=== PATIENT | female | born 1950 | race Caucasian/White ===

== ENCOUNTER 2016-06-17 12:26 | Emergency (ER) | payer OTHER ==
[~2016-06-17] VITALS: Ht 160 cm; Wt 66.2 kg
[~2016-06-17 12:26] MED LIST: ADVI200C9 PO; BUPR-197 PO; HYDR-3533 PO; OMEG5CAP PO; OYST500T77 PO
[2016-06-17 12:33] VITALS: BP 150/84; PULSE 82; RESP 16; TEMP 98.4; O2SAT 98
[2016-06-17] MEDS ORDERED: DOXY100C PO (14:44)
--- NOTE | 2016-06-17 14:46 | PD ---
HPI Chief Complaint: Facial Pain or Swelling Time Seen by Provider: 14:25 Travel History International Travel<30 days: No Contact w/Intl Traveler<30days: No Traveled to known affect area: No History of Present Illness HPI 65-year-old female presents to the emergency room for evaluation of left-sided facial swelling since yesterday. Patient states about 3 days ago, she accidentally scratched her face with her fingernail and noticed some clear drainage on the nail. She had no issues at the area until yesterday when she developed left-sided sinus swelling. She had no pain, purulent drainage, or increased warmth to the area. She applied heat to the area but states the swelling seemed to worsen after that. States overnight swelling worsened severely and caused her eye to almost swollen shut in the morning but since being awake, swelling has gone down on its own. She denies fever, chills, nausea, and vomiting. Denies nasal congestion or recent illness. PFSH Past Medical History Medical History: Denies Significant Hx Blood Disorders: No Depression: Yes (SITUATIONAL DEPRESSION) Cancer: No Cardiovascular Problems: No High Cholesterol: Yes Diabetes: No Diminished Hearing: No Endocrine: No Glaucoma: No Hepatitis: No Hiatal Hernia: No Hypertension: No Immune Disorder: No Medical other: Yes (NECK PROBLEMS) Musculoskeletal: Yes (CHRONIC NECK PAIN, TENDONITIS IN ANKLE) Neurologic: No Psychiatric: Yes Reproductive: Yes (SEE SURGERIES ABOVE) Respiratory: No Thyroid Disease: No Tetanus Vaccination: Unknown Influenza Vaccination: Yes ?: Not Past Surgical History Genitourinary Surgery: Yes (URETHAL DIVITICULI REPAIR, FISTULA) Gynecologic Surgery: Yes (HYSTERECTOMY) Hysterectomy: Yes Tonsillectomy: Yes Other Surgery: Yes (TONSILLECTOMY, HYSTERECTOMY, URETHRAL DIVERTICULI) Social History Alcohol Use: No Tobacco Use: Yes (1/2 PPD) Substance Use: No Allergies-Medications (Allergen,Severity, Reaction): Coded Allergies: Penicillin (Verified Allergy, Severe, Hives, 06/17/16) SOB Reported Meds & Prescriptions Reported Meds & Active Scripts Active Doxycycline Hyclate 100 Mg Cap 100 Mg PO BID Review of Systems Except as stated in HPI: all other systems reviewed are Neg Physical Exam Narrative GENERAL: Well-nourished, well-developed female in no acute distress. Afebrile. Ambulatory. SKIN: Warm and dry. There is an indurated area in the left maxillary sinus at the nasal fold which measures about 1 cm in diameter. There is no fluctuance, pointing, or drainage. There is a zone of inflammation around it measuring about 2 cm but no lymphangitis. There is a very superficial abrasion overlying the area of induration. HEAD: Normocephalic. EYES: No scleral icterus. No injection or drainage. NECK: Supple, trachea midline. No JVD or lymphadenopathy. Data Data Last Documented VS Vital Signs Date Time Temp Pulse Resp B/P Pulse Ox O2 Delivery O2 Flow Rate FiO2 06/17/16 12:33 98.4 82 16 150/84 98 MDM Medical Decision Making Medical Screen Exam Complete: Yes Emergency Medical Condition: Yes Medical Record Reviewed: Yes Differential Diagnosis Abscess versus folliculitis versus sinusitis Narrative Course 65-year-old female presents to the emergency room for evaluation of induration over the left sinus at the nasal fold. She associated it with scratching herself with her fingernail 3 days ago. Yesterday she developed the swelling/ induration. Denies any purulent drainage, erythema, pain, or increased warmth. Patient denies any sinus symptoms. No pain with leaning forward. Area is nontender to palpation. There is no noticeable increased warmth. There is a one. Induration with some mild surrounding erythema. Given previous break in skin, this is likely abscess. Because abscess location is adjacent to sinuses, she'll be treated for sinus and/or skin infection with doxycycline. There is no fluctuance and abscess is on the face so conservative treatment with antibiotics will be attempted first. Patient was to follow up with her primary care physician as she may need incision and drainage in the future. Told to return for worsening symptoms. She understands and agrees to plan. Diagnosis Primary Impression: Cutaneous abscess of face Referrals: Primary Care Physician Patient Instructions: Abscess (ED), General Instructions Additional Instructions: Rest and drink plenty of fluids. Take doxycycline as directed, until gone. Take ibuprofen with food as directed, as needed for pain. Apply heat to the affected area for 20 minutes at a time. Follow-up with a primary care physician if it does not improve with antibiotics as it may need lanced. Return to the emergency room for worsening symptoms. Med/Other Pt SpecificInfo: Prescription(s) given Scripts Doxycycline Hyclate 100 Mg [id number] Mg PO BID #20 CAP Ref 0 Prov:MacMahon,Castro MD 06/17/16 Disposition: 01 DISCHARGE HOME Condition: Stable Jenniffer Davenport Jun 17, 2016 14:46
== END 2016-06-17 15:16 | disposition home or self-care (01) ==
LOC: PHEFT 12:26
DX: L02.01 Cutaneous abscess of face (principal); E78.00 Pure hypercholesterolemia, unspecified; F17.210 Nicotine dependence, cigarettes, uncomplicated
CPT/HCPCS: 99283

== ENCOUNTER 2017-02-23 10:47 | Inpatient (IN) | payer OTHER ==
[2017-02-23] VITALS (8 sets, daily range): BP systolic 132–159; BP diastolic 69–81; PULSE 72–86; RESP 16–20; TEMP 97.6–98.4; O2SAT 95–99
[~2017-02-23] VITALS: Ht 160 cm; Wt 69.0 kg
[~2017-02-23 10:47] MED LIST changes: -ADVI200C9 PO; -BUPR-197 PO; +DOXY100C PO; -HYDR-3533 PO; -OMEG5CAP PO; -OYST500T77 PO
[2017-02-23] MEDS ORDERED: SODIUM CHLORIDE 0.9% FLUSH 10 ML FLUSH IVF PRN (11:15)
[2017-02-23] MEDS ORDERED: ONDANSETRON HCL 4 MG/2 ML VIAL IVP ONE (11:15)
--- NOTE | 2017-02-23 11:29 | PD ---
HPI Chief Complaint: Neuro Symptoms/ Deficits Time Seen by Provider: 11:12 Travel History International Travel<30 days: No Contact w/Intl Traveler<30days: No Traveled to known affect area: No History of Present Illness HPI The patient is 66 years old and arrives by EMS due to numbness tingling on the right side associated with weakness on the right side last night which lasted for about 20 minutes. It resolved spontaneously. The patient with the bed. This morning she noticed a depression of the right nasolabial fold and some drooling which lasted for 10-15 minutes. It resolved spontaneously en route to the ER and upon arrival she is asymptomatic. Location neurologic. Onset sudden. No similar prior episode. No history of arrhythmia. EMS reports normal vital signs are normal blood glucose. PFSH Past Medical History Blood Disorders: No Depression: Yes (SITUATIONAL DEPRESSION) Cancer: No Cardiovascular Problems: No High Cholesterol: Yes Diabetes: No Diminished Hearing: No Endocrine: No Glaucoma: No Hepatitis: No Hiatal Hernia: No Hypertension: No Immune Disorder: No Medical other: Yes (NECK PROBLEMS) Musculoskeletal: Yes (CHRONIC NECK PAIN, TENDONITIS IN ANKLE) Neurologic: No Psychiatric: Yes Reproductive: Yes (SEE SURGERIES ABOVE) Respiratory: No Thyroid Disease: No ?: Not Past Surgical History Genitourinary Surgery: Yes (URETHAL DIVITICULI REPAIR, FISTULA) Gynecologic Surgery: Yes (HYSTERECTOMY) Hysterectomy: Yes Tonsillectomy: Yes Other Surgery: Yes (TONSILLECTOMY, HYSTERECTOMY, URETHRAL DIVERTICULI) Social History Alcohol Use: No Tobacco Use: Yes (ppd) Substance Use: No Allergies-Medications (Allergen,Severity, Reaction): Coded Allergies: penicillin G (Unverified Allergy, Severe, Hives, 02/23/17) SOB Reported Meds & Prescriptions Reported Meds & Active Scripts Active No Active Prescriptions or Reported Medications Review of Systems Except as stated in HPI: all other systems reviewed are Neg Physical Exam Narrative GENERAL: 66-year-old female pleasant well-nourished well-developed speaking full sentences SKIN: Warm and dry. HEAD: Atraumatic. Normocephalic. EYES: Pupils equal and round. No scleral icterus. No injection or drainage. ENT: No nasal bleeding or discharge. Mucous membranes pink and moist. NECK: Trachea midline. No JVD. CARDIOVASCULAR: Regular rate and rhythm. RESPIRATORY: No accessory muscle use. Clear to auscultation. Breath sounds equal bilaterally. GASTROINTESTINAL: Abdomen soft, non-tender, nondistended. Hepatic and splenic margins not palpable. MUSCULOSKELETAL: Extremities without clubbing, cyanosis, or edema. No obvious deformities. NEUROLOGICAL: Awake and alert. No obvious cranial nerve deficits. Motor grossly within normal limits. Five out of 5 muscle strength in the arms and legs. Normal speech. PSYCHIATRIC: Appropriate mood and affect; insight and judgment normal. Data Data Last Documented VS Vital Signs Date Time Temp Pulse Resp B/P (MAP) Pulse Ox O2 Delivery O2 Flow Rate FiO2 02/23/17 12:53 75 20 132/69 (90) 95 Room Air 02/23/17 10:50 98.4 Vital signs reviewed Orders Orders Prothrombin Time / Inr (Pt) (02/23/17 11:12) Act Partial Throm Time (Ptt) (02/23/17 11:12) Complete Blood Count With Diff (02/23/17 11:12) Basic Metabolic Panel (Bmp) (02/23/17 11:12) Ct Brain W/O Iv Contrast(Rout) (02/23/17 11:12) Ecg Monitoring (02/23/17 11:12) Iv Access Insert/Monitor (02/23/17 11:12) Oximetry (02/23/17 11:12) Blood Glucose (02/23/17 11:12) Ondansetron Inj (Zofran Inj) (02/23/17 11:15) Sodium Chloride 0.9% Flush (Ns Flush) (02/23/17 11:15) Mri Brain W/O Contrast (02/23/17 11:12) Mra Brain W/O Contrast (Cow) (02/23/17 11:12) Electrocardiogram (02/23/17 ) Nicotine 21 Mg Patch.24 Hr (Habitrol 21 (02/23/17 11:30) Admit Order (Ed Use Only) (02/23/17 13:37) Labs Laboratory Tests Test 02/23/17 11:15 White Blood Count 7.9 TH/MM3 Red Blood Count 4.18 MIL/MM3 Hemoglobin 13.3 GM/DL Hematocrit 39.1 % Mean Corpuscular Volume 93.5 FL Mean Corpuscular Hemoglobin 31.8 PG Mean Corpuscular Hemoglobin Concent 34.0 % Red Cell Distribution Width 12.6 % Platelet Count 189 TH/MM3 Mean Platelet Volume 9.8 FL Neutrophils (%) (Auto) 68.7 % Lymphocytes (%) (Auto) 20.1 % Monocytes (%) (Auto) 8.3 % Eosinophils (%) (Auto) 1.4 % Basophils (%) (Auto) 1.5 % Neutrophils # (Auto) 5.4 TH/MM3 Lymphocytes # (Auto) 1.6 TH/MM3 Monocytes # (Auto) 0.7 TH/MM3 Eosinophils # (Auto) 0.1 TH/MM3 Basophils # (Auto) 0.1 TH/MM3 CBC Comment DIFF FINAL Differential Comment Prothrombin Time 10.1 SEC Prothromb Time International Ratio 0.9 RATIO Activated Partial Thromboplast Time 25.5 SEC Blood Urea Nitrogen 18 MG/DL Creatinine 0.83 MG/DL Random Glucose 101 MG/DL Calcium Level 8.7 MG/DL Sodium Level 142 MEQ/L Potassium Level 3.8 MEQ/L Chloride Level 110 MEQ/L Carbon Dioxide Level 24.7 MEQ/L Anion Gap 7 MEQ/L Estimat Glomerular Filtration Rate 69 ML/MIN [facility] Medical Decision Making Medical Screen Exam Complete: Yes Emergency Medical Condition: Yes Medical Record Reviewed: Yes Differential Diagnosis Stroke, TIA, syncope, arrhythmia, metabolic abnormality Narrative Course CBC & BMP Diagram 02/23/17 11:15 Calcium Level 8.7 INR 0.9 EKG: Sinus, rate 68, normal axis/intervals Presentation is concerning for TIA. Observation status for further investigation. d/w Dr Sawant for [facility] [place] Diagnosis Primary Impression: TIA (transient ischemic attack) Qualified Codes: G45.9 - Transient cerebral ischemic attack, unspecified Admitting Information Admitting Physician Requests: Observation Scripts No Active Prescriptions or Reported Meds Yonathan Clinton MD Feb 23, 2017 11:29
[2017-02-23] MEDS ORDERED: NICOTINE 21 MG/24 HR PATCH T-DERMAL ONE (11:30)
[2017-02-23 11:59] LABS: AUTOMATED NEUTROPHIL # 5.4 TH/MM3 (1.8-7.7); BASOPHIL # 0.1 TH/MM3 (0-0.2); BASOPHIL % 1.5 % (0.0-2.0); EOSINOPHIL # 0.1 TH/MM3 (0-0.4); EOSINOPHIL % 1.4 % (0.0-4.0); HEMATOCRIT 39.1 % (35.0-46.0); HEMO FLAGS DIFF FINAL; LYMPH % 20.1 % (9.0-44.0); LYMPHOCYTE # 1.6 TH/MM3 (1.0-4.8); MEAN CELL VOLUME 93.5 FL (80.0-100.0); MEAN CORPUSCULAR HEMOGLOBIN 31.8 PG (27.0-34.0); MONO % 8.3 % (0.0-8.0); NEUT % 68.7 % (16.0-70.0); PLATELET COUNT 189 TH/MM3 (150-450); RED BLOOD COUNT 4.18 MIL/MM3 (4.00-5.30); RED CELL DISTRIBUTION WIDTH 12.6 % (11.6-17.2); WHITE BLOOD COUNT 7.9 TH/MM3 (4.0-11.0)
[2017-02-23 12:05] LABS: APTT (PATIENT) 25.5 SEC (24.3-30.1); INTERNATIONAL NORMALIZED RATIO 0.9 RATIO; PROTHROMBIN TIME - PATIENT 10.1 SEC (9.8-11.6)
[2017-02-23 12:33] LABS: BICARBONATE 24.7 MEQ/L (21.0-32.0); POTASSIUM 3.8 MEQ/L (3.5-5.1)
[2017-02-23] MEDS ORDERED: GLUCAGON 1 MG/ML VIAL OTHER PRN (14:15)
[2017-02-23] MEDS ORDERED: ENALAPRILAT 1.25 MG/ML VIAL IV PRN (14:15)
[2017-02-23] MEDS ORDERED: DEXTROSE 50% IN WATER 50 ML VIAL(D50) IV PUSH PRN (14:15)
[2017-02-23] MEDS ORDERED: SODIUM CHLORIDE 0.9% FLUSH 5 ML FLUSH IV FLUSH PRN (14:15)
--- NOTE | 2017-02-23 14:20 | EKG ---
Date Performed: 02/23/2017 Time Performed: 10:55:34 PTAGE: 66 years EKG: Sinus rhythm NORMAL ECG Compared to prior tracing no significant change PREVIOUS TRACING : 12/22/2013 02.22 DOCTOR: Ntao Ford Interpretating Date/Time 02/23/2017 14:19:40
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
[2017-02-23] MEDS: SODIUM CHLOR 0.9% 1000 ML INJ 1,000 ML IV SCH (14:34)
--- NOTE | 2017-02-23 14:36 | RADRPT ---
EXAM DATE/TIME: 02/23/2017 12:01 [facility] COMPARISON: No previous studies available for comparison. INDICATIONS : Resolve right side weakness. RADIATION DOSE: 56.81 CTDIvol (mGy) MEDICAL HISTORY : None SURGICAL HISTORY : Hysterectomy. ENCOUNTER: Initial ACUITY: 1 day PAIN SCALE: 0/10 LOCATION: Cranial TECHNIQUE: Multiple contiguous axial images were obtained of the head. Using automated exposure control and adj ustment of the mA and/or kV according to patient size, radiation dose was kept as low as reasonably a chievable to obtain optimal diagnostic quality images. DICOM format image data is available electro nically for review and comparison. FINDINGS: Mild periventricular and subcortical white matter small vessel ischemic changes are noted bilaterally . Old lacunar infarcts are noted involving the right caudate nucleus and anterior limb of the right internal capsule. There are also old lacunar infarcts within the right putamen. There is no acute hem orrhage, midline shift or extra-axial fluid collections are noted. There ventricles, sulci, and ciste rns are normal in size, shape and position for the patient's age. CONCLUSION: 1. Old lacunar infarcts within the right caudate nucleus, right putamen and anterior limb of the righ t internal capsule. 2. Mild periventricular and subcortical white matter small vessel ischemic changes bilaterally. 3. No acute hemorrhage, midline shift or extra-axial fluid collections. Earle Huang MD on February 23, 2017 at 12:19 Board Certified Radiologist. This report was verified electronically.
[2017-02-23] MEDS ORDERED: GADODIAMIDE PF 287 MG/ML 20 ML VIAL (for RAD MRI) IVCONTRAST ONE (14:39)
--- NOTE | 2017-02-23 15:35 | RADRPT ---
EXAM DATE/TIME: 02/23/2017 14:25 [facility] COMPARISON: No previous studies available for comparison. INDICATIONS : Stenosis. Right sided weakness. CONTRAST: 20 cc Omniscan (gadodiamide) IV MEDICAL HISTORY : None. SURGICAL HISTORY : Tonsillectomy. Hysterectomy. Right ankle surgery. ENCOUNTER: Subsequent ACUITY: 1 day PAIN SCORE: 0/10 LOCATION: neck. Percent stenosis is calculated using the diameter of the stenotic region over the diameter of the nor mal distal internal carotid artery. TECHNIQUE: Bolus infused MRA of the extracranial circulation was performed using a neurovascular coil. Post pro cessing was performed including rotating subvolume maximum intensity projections of each carotid kari ry, rotating full volume maximum intensity projections of both carotid arteries, sagittal and coronal sliding thin slab reformations of each carotid artery, and left oblique sliding thin slab reformatio n through the aortic arch to include the origin of the arch branch vessels. FINDINGS: AORTIC ARCH: There is a three vessel origin of the great vessels from the aorta. No evidence of ostial narrowing. RIGHT CAROTID: The common carotid artery is intact. The carotid bulb has a normal configuration without ulceration or narrowing. The internal carotid artery lumen is smooth without stenosis. The external carotid ar keanu is intact. LEFT CAROTID: The common carotid artery is intact. The carotid bulb has a normal configuration without ulceration or narrowing. The internal carotid artery lumen is smooth without stenosis. The external carotid ar keanu is intact. VERTEBRALS: The vertebral arteries have a symmetric diameter. No stenotic lesions are seen. CONCLUSION: No acute disease. Earle Huang MD on February 23, 2017 at 15:33 Board Certified Radiologist. This report was verified electronically.
--- NOTE | 2017-02-23 15:40 | RADRPT ---
EXAM DATE/TIME: 02/23/2017 14:25 [facility] COMPARISON: CT BRAIN W/O CONTRAST, February 23, 2017, 12:01. INDICATIONS : Right sided weakness. CVA. MEDICAL HISTORY : None. SURGICAL HISTORY : Tonsillectomy. Hysterectomy. Right ankle repair. ENCOUNTER: Subsequent ACUITY: 1 day PAIN SCORE: 0/10 LOCATION: Head. TECHNIQUE: Multiplanar, multisequence MRI of the brain was performed without contrast. FINDINGS: There is evidence of two small areas of signal abnormality involving the left basal ganglia and coron a radiata on the diffusion weighted images indicating acute infarcts. No acute hemorrhage, midline s hift or extra-axial fluid collections are noted. Old lacunar infarcts are noted within the right bas al ganglia. Mild periventricular and subcortical white matter small vessel ischemic changes are note d bilaterally. The ventricles, sulci, and cisterns are normal in size, shape and position for the pa tient's age. The midline structures are intact. The pituitary gland is unremarkable. CONCLUSION: 1. Focal signal abnormalities involving the left basal ganglia and left howe radiata on the diffusi on weighted images indicating small acute infarcts in these locations. Clinical correlation is recomm ended. 2. Old lacunar infarcts within the right basal ganglia. 3. Mild periventricular and subcortical white matter small vessel ischemic changes bilaterally. 4. No acute hemorrhage, midline shift, or extra-axial fluid collections. Earle Huang MD on February 23, 2017 at 15:29 Board Certified Radiologist. This report was verified electronically.
--- NOTE | 2017-02-23 15:44 | RADRPT ---
EXAM DATE/TIME: 02/23/2017 14:25 [facility] COMPARISON: No previous studies available for comparison. INDICATIONS : Right sided weakness. CVA. MEDICAL HISTORY : None. SURGICAL HISTORY : Tonsillectomy. Hysterectomy. Right ankle surgery. ENCOUNTER: Subsequent ACUITY: 1 day PAIN SCORE: 0/10 LOCATION: Neck. Please note a normal MRA of the brain does not entirely exclude the possibility of a small aneurysm, nor the possibility of distal intracranial vessel disease. TECHNIQUE: 3D time of flight MRA was performed. Source images, multiplanar STS MIP, and 3D volume MIP reconstru ctions were reviewed. FINDINGS: There is occlusion of the right A1 segment. The bilateral anterior cerebral arteries fill from a pat ent anterior communicating artery and a left A1 segment. The anterior and middle cerebral arteries a re patent without significant stenosis or occlusion. The upper cervical, petrous, cavernous, and sup raclinoid internal carotid arteries are patent without significant stenosis or occlusion. The upper m ost portions of the vertebral arteries are patent without significant stenosis or occlusion. The bas ilar artery is patent without significant stenosis or occlusion. Patent bilateral posterior communic ating arteries are noted and provide predominant flow to the posterior cerebral arteries bilaterally. CONCLUSION: 1. Patent bilateral communicating arteries and anterior communicating artery. 2. Occluded right A1 segment. 3. No significant stenosis or occlusion of the bilateral anterior, middle or posterior cerebral arter ies. Earle Huang MD on February 23, 2017 at 15:34 Board Certified Radiologist. This report was verified electronically.
[2017-02-23] MEDS: INSULIN ASPART SUPPLEMENTAL SCALE SQ SCH ×2 (17:00→20:38)
[2017-02-23] MEDS: SODIUM CHLORIDE 0.9% FLUSH 5 ML FLUSH IV FLUSH SCH (20:38)
[2017-02-23 22:12] LABS: HEMOGLOBIN A1a 1.3 %; HEMOGLOBIN A1b 1.9 %; HEMOGLOBIN Ao 85.2 %; HEMOGLOBIN LA1C 1.9 %; HEMOGLOBIN P3 3.6 %
[2017-02-24] VITALS: BP 132/62; PULSE 74; RESP 20; TEMP 98; O2SAT 98
[2017-02-24 03:44] VITALS: O2SAT 97
[2017-02-24 04:00] VITALS: BP 140/68; PULSE 79; RESP 20; TEMP 97.4; O2SAT 100
[2017-02-24] MEDS ORDERED: ACETAMINOPHEN 325 MG TAB PO ONE (04:30)
[2017-02-24] MEDS: SODIUM CHLOR 0.9% 1000 ML INJ 1,000 ML IV SCH (05:18)
[2017-02-24] MEDS: INSULIN ASPART SUPPLEMENTAL SCALE SQ SCH ×3 (08:00→17:00)
[2017-02-24 08:30] VITALS: BP 123/61; PULSE 76; RESP 18; TEMP 97.6; O2SAT 98
[2017-02-24] MEDS ORDERED: ASPIRIN 81 MG CHEW TAB PO SCH (09:00)
[2017-02-24] MEDS: SODIUM CHLORIDE 0.9% FLUSH 5 ML FLUSH IV FLUSH SCH (09:00)
[2017-02-24 10:17] LABS: AUTOMATED NEUTROPHIL # 4.8 TH/MM3 (1.8-7.7); BASOPHIL % 0.6 % (0.0-2.0); EOSINOPHIL # 0.2 TH/MM3 (0-0.4); EOSINOPHIL % 2.7 % (0.0-4.0); HEMATOCRIT 37.8 % (35.0-46.0); HEMO FLAGS DIFF FINAL; LYMPH % 20.4 % (9.0-44.0); LYMPHOCYTE # 1.5 TH/MM3 (1.0-4.8); MEAN CELL VOLUME 92.9 FL (80.0-100.0); MEAN CORPUSCULAR HEMOGLOBIN 31.3 PG (27.0-34.0); MEAN CORPUSCULAR HGB CONC 33.7 % (32.0-36.0); NEUT % 66.3 % (16.0-70.0); PLATELET COUNT 188 TH/MM3 (150-450); RED BLOOD COUNT 4.07 MIL/MM3 (4.00-5.30); RED CELL DISTRIBUTION WIDTH 12.6 % (11.6-17.2); WHITE BLOOD COUNT 7.2 TH/MM3 (4.0-11.0)
[2017-02-24 10:25] LABS: POTASSIUM 3.5 MEQ/L (3.5-5.1)
[2017-02-24 10:29] LABS: TOTAL BILIRUBIN ADULT 0.3 MG/DL (0.2-1.0)
[2017-02-24 10:30] LABS: INDIRECT BILIRUBIN 0.2 MG/DL (0.0-0.8)
[2017-02-24] MEDS ORDERED: IBUPROFEN 400 MG TAB PO PRN (11:00)
[2017-02-24] MEDS ORDERED: PANTOPRAZOLE SOD 20 MG DELAYED RELEASE TAB PO SCH (11:00)
[2017-02-24 11:59] VITALS: BP 134/65; PULSE 71; RESP 18; TEMP 97.8; O2SAT 98
--- NOTE | 2017-02-24 13:10 | MB ---
cc: BRANT RIVAS M.D. DATE OF CONSULTATION 02/24/2017 REASON FOR CONSULTATION This is a 66-year-old seen in neurological consultation today. She was admitted yesterday. She describes the day before yesterday she had a 20-minute period of right-sided weakness. It was first observed that she had difficulty holding objects with her right hand and when she walked, her right leg was weak. She tried to ignore the symptoms. They improved, but yesterday she was again having some right-sided weakness, although milder and at the same time she had some cognition difficulty, had difficulty texting her daughter. The symptoms also subsided fairly quickly, but she came to the hospital and was admitted for further evaluation and management. She denies a history of diabetes, hypertension, stroke, TIAs. She is a smoker. She works as a nurse here in the hospital. She apparently has a history of high cholesterol or triglycerides and does not take medications. NEUROLOGICAL EXAM Her neurologic exam right now is quite benign. She is alert, pleasant, oriented. Normal speech and language. There is no arm drift. She is ambulating well independently. Visual campbell full. Reflexes diminished, but present throughout including ankles. Plantar responses were flexor. ANCILLARY DATA The CBC is normal. The chemistry also was essentially normal. INR of 0.9. MRI of the brain shows a left basal ganglia and left colon radiata diffusion abnormalities indicating a small acute infarct. Old lacunar right basal ganglia. The neck MRA is showing no significant disease. The head MRA shows an occluded right A1 segment, no significant disease in the anterior/middle/posterior cerebral arteries. ASSESSMENT Left dip middle cerebral artery distribution acute infarct, small causing right hemiparesis and some cognition impairment transiently. Continue on aspirin and checking a lipid profile. Apparently there is a history of some hyperlipidemia. Pending echocardiogram. EKG is sinus rhythm. I will follow the neurological course. Advised to quit smoking. Thank you for asking us to assist in her care. MD TERRI Munson/BRITT /7:54 AM /12:58 PM
[2017-02-24 13:19] VITALS: PULSE 73
--- NOTE | 2017-02-24 13:40 | HHI.PR ---
Subjective Remarks Follow-up for CVA. Denies any acute events. The patient states that overnight she had significant chronic neck pain. She also had headache which she attributes to sinus pressure, no drainage, asking for antihistamine. Agreeable for statin now. Hoping to go home soon. Speech therapy recommended continued therapy, which the patient wishes to pursue as outpatient. The patient states the neurologist saw her and told her she could probably go home later today. Objective Vitals Vital Signs Date Time Temp Pulse Resp B/P (MAP) Pulse Ox O2 Delivery O2 Flow Rate FiO2 02/24/17 13:19 73 02/24/17 11:59 97.8 71 18 134/65 (88) 98 02/24/17 08:30 97.6 76 18 123/61 (81) 98 02/24/17 04:00 97.4 79 20 140/68 (92) 100 02/24/17 03:44 97 02/24/17 00:00 98.0 74 20 132/62 (85) 98 02/23/17 20:00 98.4 72 20 141/77 (98) 99 02/23/17 18:22 97.6 75 18 137/70 (92) 02/23/17 15:53 97.9 74 16 138/70 (92) 98 02/23/17 15:13 02/23/17 15:09 97 21 02/23/17 15:07 78 19 135/72 (93) 97 Room Air Result Diagram: 02/24/17 0838 02/24/17 0838 Imaging Last Impressions Head Magnetic Resonance Angiography 02/23/17 1112 Signed Impressions: Service Date/Time: February 14:25 - CONCLUSION: 1. Patent bilateral communicating arteries and anterior communicating artery. 2. Occluded right A1 segment. 3. No significant stenosis or occlusion of the bilateral anterior, middle or posterior cerebral arteries. Earle Huang MD Head CT 02/23/17 1112 Signed Impressions: Service Date/Time: February 12:01 - CONCLUSION: 1. Old lacunar infarcts within the right caudate nucleus, right putamen and anterior limb of the right internal capsule. 2. Mild periventricular and subcortical white matter small vessel ischemic changes bilaterally. 3. No acute hemorrhage , midline shift or extra-axial fluid collections. Earle Huang MD Brain MRI 02/23/17 1112 Signed Impressions: Service Date/Time: February 14:25 - CONCLUSION: 1. Focal signal abnormalities involving the left basal ganglia and left howe radiata on the diffusion weighted images indicating small acute infarcts in these locations. Clinical correlation is recommended. 2. Old lacunar infarcts within the right basal ganglia. 3. Mild periventricular and subcortical white matter small vessel ischemic changes bilaterally. 4. No acute hemorrhage, midline shift, or extra-axial fluid collections. Earle Huang MD Neck Magnetic Resonance Angiography 02/23/17 0000 Signed Impressions: Service Date/Time: February 14:25 - CONCLUSION: No acute disease. Earle Huang MD Objective Remarks GENERAL: Well-developed well-nourished. In no acute distress. SKIN: Warm and dry. No lesions noted. HEENT: Normocephalic. Pupils equal and round. Mucous membranes pink and moist. No frontal or maxillary TTP. CARDIOVASCULAR: Regular rate and rhythm. No murmur appreciated. RESPIRATORY: No accessory muscle use. Clear to auscultation. Breath sounds equal bilaterally. GASTROINTESTINAL: Abdomen soft, non-tender, nondistended. Bowel sounds x4. MUSCULOSKELETAL: No obvious deformities. No clubbing or cyanosis. No edema. NEUROLOGICAL: Awake and alert. No focal neurological deficits. Moves upper and lower extremities spontaneously. Mostly normal speech with occasional dysarthria. No facial asymmetry. PSYCHIATRIC: Appropriate mood and affect; insight and judgment normal. A/P Assessment and Plan 66-year-old female with a past medical history of HLD, chronic neck pain who presented for transient neurologic symptoms Acute TIA/CVA: Patient with episodes of transient weakness last night and transient decreased mentation and drooling today. Reviewed: Head CT image with no acute stroke. EKG with NSR. Brain MRI showed small infarcts in the left basal ganglia and left howe radiata. MRA of the head and neck unremarkable. Hemoglobin A1c within normal limits. Lipid profile with elevated LDL. -Continue standard stroke/TIA workup; head of bed flat, swallow eval, IVF, permissive hypertension -echocardiogram performed, results pending -Monitor on telemetry, no A. fib noted -Neurology following -PT/OT/ST - mild deficits noted with ST, planning on outpatient speech therapy; cleared by PT and OT -Start aspirin and statin. Discussed lifestyle modifications. Chronic neck pain: -Patient requests continued pain control with ibuprofen and PPI for gastric protection Sinus congestion: -Claritin Tobacco abuse: Counseled extensively on cessation. Nicotine patch ordered in the ED. DVT prophylaxis: SCDs Discharge Planning Follow up results of echocardiogram and if unremarkable likely discharge later today. D/W Dr. Harley, patient can be discharged from neuro perspective. D/W Dr. Clinton, echo with normal EF and trace MR/TR; essentially unremarkable. Discharge patient to home Condition on discharge: Improved Heart Healthy Diet as tolerated Regular activity Rx written: aspirin, Lipitor Follow-up with primary care physician and neurology Juan Oro Feb 24, 2017 13:40
[2017-02-24] MEDS ORDERED: ASPI81CH25 PO (13:41)
[2017-02-24] MEDS ORDERED: LIPI10TA PO (13:41)
[2017-02-24] MEDS ORDERED: LORATADINE 10 MG TAB PO SCH (13:45)
--- NOTE | 2017-02-24 15:29 | ECHRPT ---
Indication: cva/tia CONCLUSIONS Normal left ventricular size. The left ventricular systolic function is normal with an estimated ejection fraction in the range of 55-60%. Trace mitral valve regurgitation. There is trace tricuspid valve regurgitation. BP: 132 / 69 HR: 75 Rhythm: Sinus MEASUREMENTS (Male / Female) Normal Values Technical Quality:Good 2D ECHO LV Diastolic Diameter PLAX 4.2 cm 4.2 - 5.9 / 3.9 - 5.3 cm LV Systolic Diameter PLAX 3.0 cm IVS Diastolic Thickness 1.0 cm 0.6 - 1.0 / 0.6 - 0.9 cm LVPW Diastolic Thickness 0.7 cm 0.6 - 1.0 / 0.6 - 0.9 cm LV Relative Wall Thickness 0.4 RV Internal Dim ED PLAX 2.0 cm LA Systolic Diameter LX 2.7 cm 3.0 - 4.0 / 2.7 - 3.8 cm M-MODE Aortic Root Diameter MM 2.3 cm AV Cusp Separation MM 1.8 cm DOPPLER MR Peak Velocity 381.0 cm/s MR Peak Gradient 58.1 mmHg Mitral E Point Velocity 80.0 cm/s Mitral A Point Velocity 81.4 cm/s Mitral E to A Ratio 1.0 TR Peak Velocity 246.0 cm/s TR Peak Gradient 24.2 mmHg FINDINGS LEFT VENTRICLE Normal left ventricular size. Wall thickness is normal. The left ventricular systolic function is normal with an estimated ejection fraction in the range of 55-60%. No regional wall motion abnormalities are present. RIGHT VENTRICLE Normal right ventricular size and systolic function. LEFT ATRIUM The left atrial size is normal. RIGHT ATRIUM The right atrial size is normal. ATRIAL SEPTUM Normal atrial septal thickness without atrial level shunting by limited color doppler interrogation. AORTA The aortic root and proximal ascending aorta are normal in size on limited imaging. MITRAL VALVE Structurally normal mitral valve. Trace mitral valve regurgitation. No mitral valve stenosis. AORTIC VALVE Trileaflet aortic valve. No aortic valve stenosis or regurgitation. TRICUSPID VALVE Structurally normal tricuspid valve. There is trace tricuspid valve regurgitation. No tricuspid valve stenosis. The estimated pulmonary arterial pressure is 29 mmHg. PULMONARY VALVE The pulmonary valve is not well visualized. VESSELS The inferior vena cava is normal in size. PERICARDIUM No pericardial effusion. Austin Clinton DO (Electronically Signed) Final Date:24 February 2017 15:27
[2017-02-24] MEDS ORDERED: ATORVASTATIN 10 MG TAB PO SCH (21:00)
[2017-02-25] MEDS ORDERED: IBUP-232 PO (11:15)
[2017-02-25] MEDS ORDERED: OMEP20TA PO (11:15)
== END 2017-02-24 18:49 | disposition home or self-care (01) | DRG 69 ==
LOC: NEPC 10:47 → NEDA 13:38 → NEPGCP 15:23 → OBSVTOIN 16:01 → N05A 18:19
PROVIDERS: ADMIT Internal Medicine; ATTEND Internal Medicine
DX: G45.9 Transient cerebral ischemic attack, unspecified (principal); G81.91 Hemiplegia, unspecified affecting right dominant side; I10 Essential (primary) hypertension; E78.5 Hyperlipidemia, unspecified; G89.29 Other chronic pain; M54.2 Cervicalgia; R13.10 Dysphagia, unspecified; F17.210 Nicotine dependence, cigarettes, uncomplicated
CPT/HCPCS: 70450; 70544; 70548; 70551; 80048; 80061; 80076; 82948; 83036; 85025; 85610; 85730; 93005; 93306; A9579; G8987-GP; G8988-GP

== ENCOUNTER 2017-02-25 10:55 | Inpatient (IN) | payer OTHER ==
[2017-02-25] VITALS (7 sets, daily range): BP systolic 131–169; BP diastolic 68–77; PULSE 69–76; RESP 16–24; TEMP 97.4–98.6; O2SAT 95–100
[~2017-02-25] VITALS: Ht 160 cm; Wt 67.9 kg
[~2017-02-25 10:55] MED LIST changes: +ASPI81CH25 PO; -DOXY100C PO; +LIPI10TA PO
[2017-02-25] MEDS ORDERED: OMEP20TA PO (11:15)
[2017-02-25] MEDS ORDERED: IBUP-232 PO (11:15)
--- NOTE | 2017-02-25 11:52 | PD ---
HPI Chief Complaint: Neuro Symptoms/ Deficits Time Seen by Provider: 11:06 Travel History International Travel<30 days: No Contact w/Intl Traveler<30days: No Traveled to known affect area: No History of Present Illness HPI 66yo F with recent left basal ganglia infarct and discharged yesterday from [place] presents to the ED with complaints of new symptoms upon waking up this morning at 7:30am. Pt states she went to bed normal last night and woke up with slurred speech, right facial droop and right sided weakness. States the weakness has improved but still with right facial droop and slurred speech. Pt was seen on 02/23/17 for transient decreased in mentation, drooling and right sided weakness and was discharged on 02/24/17. Pt states her symptoms had resolved. Denies any fever, chest pain, sob, n/v, abdominal pain, focal numbness. PFSH Past Medical History Blood Disorders: No Anxiety: No Depression: Yes (SITUATIONAL DEPRESSION) Cancer: No Cardiovascular Problems: No High Cholesterol: Yes Cerebrovascular Accident: Yes Diabetes: No Diminished Hearing: No Endocrine: No Glaucoma: No Genitourinary: Yes (URETHRAL DIVERTICULI) Hepatitis: No Hiatal Hernia: No Hypertension: No Immune Disorder: No Medical other: Yes (NECK PROBLEMS) Musculoskeletal: Yes (CHRONIC NECK PAIN, TENDONITIS IN ANKLE) Neurologic: No Psychiatric: Yes Reproductive: Yes (SEE SURGERIES ABOVE) Respiratory: No Thyroid Disease: No Influenza Vaccination: Yes ?: Not Menopausal: Yes Past Surgical History Genitourinary Surgery: Yes (URETHAL DIVITICULI REPAIR, FISTULA) Gynecologic Surgery: Yes (HYSTERECTOMY) Hysterectomy: Yes Tonsillectomy: Yes Other Surgery: Yes (TONSILLECTOMY, HYSTERECTOMY, URETHRAL DIVERTICULI) Social History Alcohol Use: No Tobacco Use: Yes (RECENTLY QUIT) Substance Use: No Allergies-Medications (Allergen,Severity, Reaction): Coded Allergies: penicillin G (Unverified Allergy, Severe, Hives, 02/25/17) SOB Reported Meds & Prescriptions Reported Meds & Active Scripts Active Aspirin Low Strength (Aspirin) 81 Mg Chew 81 Mg PO DAILY Lipitor (Atorvastatin Calcium) 10 Mg Tab 10 Mg PO HS Reported Omeprazole 20 Mg Tab 20 Mg PO DAILY Ibuprofen 600 Mg Tab 600 Mg PO Q8HR PRN Review of Systems Except as stated in HPI: all other systems reviewed are Neg Physical Exam Narrative GENERAL: 66yo F in mild distress. SKIN: Focused skin assessment warm/dry. HEAD: Atraumatic. Normocephalic. EYES: Pupils equal and round. No scleral icterus. No injection or drainage. ENT: No nasal bleeding or discharge. Mucous membranes pink and moist. NECK: Trachea midline. No JVD. CARDIOVASCULAR: Regular rate and rhythm. No murmur appreciated. RESPIRATORY: No accessory muscle use. Clear to auscultation. Breath sounds equal bilaterally. GASTROINTESTINAL: Abdomen soft, non-tender, nondistended. MUSCULOSKELETAL: No obvious deformities. No clubbing. No cyanosis. No edema. NEUROLOGICAL: Awake and alert. Mild right facial droop. Mild dysarthria. NIH stroke scale 2. Muscle strength 5/5 in all extremities with no droop. Sensation equal and intact. PSYCHIATRIC: Appropriate mood and affect; insight and judgment normal. Data Data Last Documented VS Vital Signs Date Time Temp Pulse Resp B/P (MAP) Pulse Ox O2 Delivery O2 Flow Rate FiO2 02/25/17 13:08 73 24 131/77 (95) 100 Room Air 02/25/17 11:[address] Brain W/O Iv Contrast(Rout) (02/25/17 ) Complete Blood Count With Diff (02/25/17 11:41) Basic Metabolic Panel (Bmp) (02/25/17 11:41) Prothrombin Time / Inr (Pt) (02/25/17 11:41) Act Partial Throm Time (Ptt) (02/25/17 11:41) Aspirin (Aspirin) (02/25/17 13:30) Admit Order (Ed Use Only) (02/25/17 13:28) Labs Laboratory Tests Test 02/25/17 11:57 White Blood Count 6.3 TH/MM3 Red Blood Count 4.28 MIL/MM3 Hemoglobin 13.3 GM/DL Hematocrit 39.9 % Mean Corpuscular Volume 93.4 FL Mean Corpuscular Hemoglobin 31.0 PG Mean Corpuscular Hemoglobin Concent 33.2 % Red Cell Distribution Width 13.1 % Platelet Count 195 TH/MM3 Mean Platelet Volume 8.8 FL Neutrophils (%) (Auto) 67.3 % Lymphocytes (%) (Auto) 19.8 % Monocytes (%) (Auto) 9.8 % Eosinophils (%) (Auto) 2.3 % Basophils (%) (Auto) 0.8 % Neutrophils # (Auto) 4.2 TH/MM3 Lymphocytes # (Auto) 1.2 TH/MM3 Monocytes # (Auto) 0.6 TH/MM3 Eosinophils # (Auto) 0.1 TH/MM3 Basophils # (Auto) 0.0 TH/MM3 CBC Comment DIFF FINAL Differential Comment Prothrombin Time 10.0 SEC Prothromb Time International Ratio 0.9 RATIO Activated Partial Thromboplast Time 27.5 SEC Blood Urea Nitrogen 15 MG/DL Creatinine 0.75 MG/DL Random Glucose 106 MG/DL Calcium Level 8.9 MG/DL Sodium Level 142 MEQ/L Potassium Level 3.8 MEQ/L Chloride Level 107 MEQ/L Carbon Dioxide Level 26.9 MEQ/L Anion Gap 8 MEQ/L Estimat Glomerular Filtration Rate 78 ML/MIN Vitamin B12 Level 581 PG/ML Folate GREATER THAN 20.0 NG/ML Free Thyroxine 1.10 NG/DL Thyroid Stimulating Hormone 3rd Gen 0.939 uIU/ML MDM Medical Decision Making Medical Screen Exam Complete: Yes Emergency Medical Condition: Yes Interpretation(s) EKG: NSR 72bpm. Normal axis. No ST segment elevation or depression. Differential Diagnosis New CVA vs. TIA Narrative Course 66yo F with new onset dysarthria and right facial drip since waking up this morning. Pt was just discharged yesterday after MRI brain showed small acute infarct in left basal ganglia. Pt has new symptoms today and weakness in right side has improved but pt is still unable to sign her name which is new. Pt reevaluated at bedside and right facial droop improved but speech is still slurred. Pt tolerating PO and did not take aspirin today so will give aspirin. Labs reviewed, no leukocytosis. BMP unremarkable. CT brain showed mild areas of subacute infarction involving left caudate, left basal ganglia and left centrum semiovale. Old lacunar infarct on right. Will admit pt for new CVA. Diagnosis Primary Impression: CVA (cerebral vascular accident) Qualified Codes: I63.9 - Cerebral infarction, unspecified Admitting Information Admitting Physician Requests: Elda Sood DO Feb 25, 2017 11:52
[2017-02-25 12:09] LABS: AUTOMATED NEUTROPHIL # 4.2 TH/MM3 (1.8-7.7); BASOPHIL % 0.8 % (0.0-2.0); EOSINOPHIL # 0.1 TH/MM3 (0-0.4); EOSINOPHIL % 2.3 % (0.0-4.0); HEMATOCRIT 39.9 % (35.0-46.0); HEMO FLAGS DIFF FINAL; LYMPH % 19.8 % (9.0-44.0); LYMPHOCYTE # 1.2 TH/MM3 (1.0-4.8); MEAN CELL VOLUME 93.4 FL (80.0-100.0); MEAN CORPUSCULAR HGB CONC 33.2 % (32.0-36.0); MONO % 9.8 % (0.0-8.0); NEUT % 67.3 % (16.0-70.0); PLATELET COUNT 195 TH/MM3 (150-450); RED BLOOD COUNT 4.28 MIL/MM3 (4.00-5.30); RED CELL DISTRIBUTION WIDTH 13.1 % (11.6-17.2); WHITE BLOOD COUNT 6.3 TH/MM3 (4.0-11.0)
[2017-02-25 12:19] LABS: APTT (PATIENT) 27.5 SEC (24.3-30.1); INTERNATIONAL NORMALIZED RATIO 0.9 RATIO
--- NOTE | 2017-02-25 12:31 | RADRPT ---
EXAM DATE/TIME: 02/25/2017 11:20 [facility] COMPARISON: MRI BRAIN W/O CONTRAST, February 23, 2017, 14:25. CT BRAIN W/O CONTRAST, February 23, 2017, 12:01. INDICATIONS : Slurred speech and right facial droop. RADIATION DOSE: 56.35 CTDIvol (mGy) MEDICAL HISTORY : Stroke. SURGICAL HISTORY : Hysterectomy. ENCOUNTER: Initial ACUITY: 1 day PAIN SCALE: 0/10 LOCATION: cranial TECHNIQUE: Multiple contiguous axial images were obtained of the head. Using automated exposure control and adj ustment of the mA and/or kV according to patient size, radiation dose was kept as low as reasonably a chievable to obtain optimal diagnostic quality images. DICOM format image data is available electro nically for review and comparison. FINDINGS: CEREBRUM: The ventricles are normal for age. There is an area of low density seen in the left caudate body, le ft basal ganglia, and in the left centrum semiovale white matter consistent with the area of recent i nfarction seen on MRI examination. There is an old lacunar infarct involving the caudate head, anteri or limb internal capsule and anterior basal ganglia on the right. No evidence of midline shift, mass lesion, or hemorrhage. No extra-axial fluid collections are seen. POSTERIOR FOSSA: The cerebellum and brainstem are intact. The 4th ventricle is midline. The cerebellopontine angle i s unremarkable. EXTRACRANIAL: The visualized portion of the orbits is intact. SKULL: The calvaria is intact. No evidence of skull fracture. CONCLUSION: 1. Mild areas of subacute infarction involving the left caudate, left basal ganglia, and left centrum semiovale. 2. Old lacunar infarct on the right. Tremaine Rosado MD on February 25, 2017 at 12:23 Board Certified Radiologist. This report was verified electronically.
[2017-02-25 12:45] LABS: BICARBONATE 26.9 MEQ/L (21.0-32.0); POTASSIUM 3.8 MEQ/L (3.5-5.1)
[2017-02-25] MEDS ORDERED: ASPIRIN 325 MG TAB PO ONE (13:30)
[2017-02-25] MEDS ORDERED: GLUCAGON 1 MG/ML VIAL OTHER PRN (13:45)
[2017-02-25] MEDS ORDERED: DEXTROSE 50% IN WATER 50 ML VIAL(D50) IV PUSH PRN (13:45)
[2017-02-25] MEDS ORDERED: SODIUM CHLORIDE 0.9% FLUSH 5 ML FLUSH IV FLUSH PRN (13:45)
[2017-02-25] MEDS: ENOXAPARIN SODIUM 40 MG/0.4 ML SYRINGE SQ SCH (14:56)
--- NOTE | 2017-02-25 15:24 | HHI.HP ---
[facility] Feliz Pineda MD Admission Diagnosis CVA Diagnoses: Chief Complaint: Stroke Travel History International Travel<30 Days: No Contact w/Intl Traveler <30 Da: No Traveled to Known Affected Are: No History of Present Illness Written by Juan Oro, acting as scribe for Dr. Garcia on 02/25/17 at 15:23. 66-year-old female with past medical history of HLD and chronic neck pain who was discharged yesterday after acute CVA presented for recurrent neurologic symptoms. The patient was discharged from hospital yesterday afternoon. She was fine and asymptomatic prior to going to bed. She states when she woke up this morning she had slurred speech which has persisted today. Earlier today she had a funny feeling in her right hand and had a hard time writing her name, denies any right upper extremity weakness. The right leg involvement. She denies any vision blurriness, lightheadedness, dizziness, swallowing difficulties. She did notice some sinus congestion starting yesterday. Last BM 2 days ago. She denies any fever, chills, chest pain. Review of Systems Except as stated in HPI: all other systems reviewed are Neg Past Family Social History Past Medical History CVA Hyperlipidemia Chronic neck pain Past Surgical History Urethral diverticulum repair Hysterectomy Tonsillectomy Reported Medications Reported Meds & Active Scripts Active Aspirin Low Strength (Aspirin) 81 Mg Chew 81 Mg PO DAILY Lipitor (Atorvastatin Calcium) 10 Mg Tab 10 Mg PO HS Reported Omeprazole 20 Mg Tab 20 Mg PO DAILY Ibuprofen 600 Mg Tab 600 Mg PO Q8HR PRN Allergies: Coded Allergies: penicillin G (Unverified Allergy, Severe, Hives, 02/25/17) SOB Active Ordered Medications Current Medications Medications (Trade) Dose Ordered Sig/Cj Route Start Time Stop Time Status Last Admin (NS Flush) 2 ml BID IV FLUSH 02/25/17 21:00 (NS Flush) 2 ml UNSCH PRN IV FLUSH 02/25/17 13:45 (NovoLOG SUPPLEMENTAL SCALE) 1 ACHS SQ 02/25/17 17:00 (D50w (Vial) Inj) 50 ml UNSCH PRN IV PUSH 02/25/17 13:45 (Glucagon Inj) 1 mg UNSCH PRN OTHER 02/25/17 13:45 (Lovenox Inj) 40 mg Q24H SQ 02/25/17 15:00 02/25/17 14:56 (Aspirin Chew) 81 mg DAILY PO 02/26/17 09:00 (Lipitor) 10 mg HS PO 02/25/17 21:00 (Protonix) 20 mg DAILY PO 02/26/17 09:00 Family History Sister and grandmother have high cholesterol Social History Tobacco use, last month 3 days ago Denies any alcohol or drug use Works as a nurse here Physical Exam Vital Signs Vital Signs Date Time Temp Pulse Resp B/P (MAP) Pulse Ox O2 Delivery O2 Flow Rate FiO2 02/25/17 14:56 69 17 153/73 (99) 99 Room Air 02/25/17 13:08 73 24 131/77 (95) 100 Room Air 02/25/17 11:09 75 17 143/68 (93) 98 Room Air 02/25/17 11:05 97.8 76 16 143/68 (93) 98 Physical Exam GENERAL: Well-developed well-nourished. In no acute distress. SKIN: Warm and dry. No lesions noted. HEENT: Normocephalic. Pupils equal and round, reactive to light. EOMs and peripheral vision grossly intact. Mucous membranes pink and moist. CARDIOVASCULAR: Regular rate and rhythm. No murmur appreciated. RESPIRATORY: No accessory muscle use. Clear to auscultation. Breath sounds equal bilaterally. GASTROINTESTINAL: Abdomen soft, non-tender, nondistended. Bowel sounds x4. MUSCULOSKELETAL: No obvious deformities. No clubbing or cyanosis. No edema. NEUROLOGICAL: Awake and alert. Slightly slurred speech. Right facial droop. Finger to nose is a little quicker on the left. Strength 5/5. No pronator drift. Sensation grossly intact. Lower extremity reflexes symmetrical. PSYCHIATRIC: Appropriate mood and affect; insight and judgment normal. Laboratory Laboratory Tests Test 02/25/17 11:57 White Blood Count 6.3 Red Blood Count 4.28 Hemoglobin 13.3 Hematocrit 39.9 Mean Corpuscular Volume 93.4 Mean Corpuscular Hemoglobin 31.0 Mean Corpuscular Hemoglobin Concent 33.2 Red Cell Distribution Width 13.1 Platelet Count 195 Mean Platelet Volume 8.8 Neutrophils (%) (Auto) 67.3 Lymphocytes (%) (Auto) 19.8 Monocytes (%) (Auto) 9.8 Eosinophils (%) (Auto) 2.3 Basophils (%) (Auto) 0.8 Neutrophils # (Auto) 4.2 Lymphocytes # (Auto) 1.2 Monocytes # (Auto) 0.6 Eosinophils # (Auto) 0.1 Basophils # (Auto) 0.0 CBC Comment DIFF FINAL Differential Comment Prothrombin Time 10.0 Prothromb Time International Ratio 0.9 Activated Partial Thromboplast Time 27.5 Blood Urea Nitrogen 15 Creatinine 0.75 Random Glucose 106 Calcium Level 8.9 Sodium Level 142 Potassium Level 3.8 Chloride Level 107 Carbon Dioxide Level 26.9 Anion Gap 8 Estimat Glomerular Filtration Rate 78 Result Diagram: 02/25/17 1157 02/25/17 1157 Imaging Last Impressions Head CT 02/25/17 0000 Signed Impressions: Service Date/Time: Saturday, February 25, 2017 11:20 - CONCLUSION: 1. Mild areas of subacute infarction involving the left caudate, left basal ganglia, and left centrum semiovale. 2. Old lacunar infarct on the right. Tremaine Rosado MD Caprini VTE Risk Assessment Caprini VTE Risk Assessment: Mod/High Risk (score >= 2) Caprini Risk Assessment Model Point Value = 1 Point Value = 2 Point Value = 3 Point Value = 5 Age 41-60 Minor surgery BMI > 25 kg/m2 Swollen legs Varicose veins or History of unexplained or recurrent spontaneous Oral contraceptives or hormone replacement Sepsis (< 1 month) Serious lung disease, including pneumonia (< 1 month) Abnormal pulmonary function Acute myocardial infarction Congestive heart failure (< 1 month) History of inflammatory bowel disease Medical patient at bed rest Age 61-74 Arthroscopic surgery Major open surgery (> 45 min) Laparoscopic surgery (> 45 min) Malignancy Confined to bed (> 72 hours) Immobilizing plaster cast Central venous access Age >= 75 History of VTE Family history of VTE Factor V Leiden Prothrombin [id number] Lupus anticoagulant Anticardiolipin antibodies Elevated serum homocysteine Heparin-induced thrombocytopenia Other congenital or acquired thrombophilia Stroke (< 1 month) Elective arthroplasty Hip, pelvis, or leg fracture Acute spinal cord injury (< 1 month) Prophylaxis Regimen Total Risk Factor Score Risk Level Prophylaxis Regimen 0-1 Low Early ambulation 2 Moderate Order ONE of the following: *Sequential Compression Device (SCD) *Heparin 5000 units SQ BID 3-4 Higher Order ONE of the following medications: *Heparin 5000 units SQ TID *Enoxaparin/Lovenox 40 mg SQ daily (WT < 150 kg, CrCl > 30 mL/min) *Enoxaparin/Lovenox 30 mg SQ daily (WT < 150 kg, CrCl > 10-29 mL/min) *Enoxaparin/Lovenox 30 mg SQ BID (WT < 150 kg, CrCl > 30 mL/min) AND/OR *Sequential Compression Device (SCD) 5 or more Highest Order ONE of the following medications: *Heparin 5000 units SQ TID (Preferred with Epidurals) *Enoxaparin/Lovenox 40 mg SQ daily (WT < 150 kg, CrCl > 30 mL/min) *Enoxaparin/Lovenox 30 mg SQ daily (WT < 150 kg, CrCl > 10-29 mL/min) *Enoxaparin/Lovenox 30 mg SQ BID (WT < 150 kg, CrCl > 30 mL/min) AND *Sequential Compression Device (SCD) Assessment and Plan Assessment and Plan 66-year-old female with past medical history of HLD and chronic neck pain who was discharged yesterday after acute CVA presented for recurrent neurologic symptoms Acute on subacute CVA involving the left caudate, left basal ganglia, left centrum semiovale: Reviewed: Records from previous hospitalization. Head CT today shows mild versus an acute infarction involving the left caudate, left basal ganglia, left centrum semiovale; old lacunar infarct on the right. -Swallow assessment, stroke scale, glucose checks -Consult neurology -Continue aspirin and statin -PT/OT/ST -IVF Chronic neck pain: -Continue ibuprofen and PPI DVT prophylaxis: SCDs, Lovenox Code Status DO NOT RESUSCITATE Discussed Condition With Patient, ED staff Attending Statement This note was transcribed by [email or web address] [Juan Oro]. I, Dr. Sean Garcia personally performed the history, physical exam, and medical decision making; and confirmed the accuracy of the information in the transcribed note. Authenticated by Dr. Sean Garcia on 02/25/17 at 21:31. Juan Oro Feb 25, 2017 15:23 Sean Garcia MD Feb 25, 2017 21:31
[2017-02-25] MEDS: SODIUM CHLOR 0.9% 1000 ML INJ 1,000 ML IV SCH ×2 (15:45→22:42)
[2017-02-25] MEDS: INSULIN ASPART SUPPLEMENTAL SCALE SQ SCH ×2 (16:55→21:19)
--- NOTE | 2017-02-25 20:48 | MB ---
cc: MORGAN GOTTI DATE OF CONSULTATION 02/25/17 HISTORY OF PRESENT ILLNESS This patient is a 66-year-old right-handed woman with a history of hypercholesterolemia, otherwise, very healthy, seen by Dr. Harley yesterday. She had been admitted on the . She had 20 minutes of right-sided weakness, difficulty holding objects, seemed to get better then worse and then came into the hospital. Was subsequently worked up and evidently discharged, went home and her speech got more slurred so she came back in. MRI showed a left basal ganglia and left howe radiata acute infarct and an old right basal ganglionic infarct. MRA of the neck was negative. MRA of the [place] showed occluded right A1 segment. No disease otherwise. She was started on an aspirin. REVIEW OF SYSTEMS She denied any hypertension, diabetes, HI, CABG, cardiac arrhythmia, stent, angioplasty, a-fib, Coumadin, renal, hepatic or pulmonary disease, thyroid disease, lupus, ulcer, cancer, seizure, stroke, chest pain or palpitations. SOCIAL HISTORY She is a smoker and I have asked her to quit. She is not a drinker, lives by herself with a cat. FAMILY HISTORY Positive for cancer. Negative for seizure, stroke. ALLERGIES PENICILLIN. MEDICATIONS Was not on any medicines initially and then had come back in today on aspirin 81 milligrams, Lipitor and omeprazole. PHYSICAL EXAMINATION VITAL SIGNS: On exam afebrile, 72, 18, 169/77. She is in sinus rhythm. NECK: There are no carotid bruits. HEART: Regular rhythm. I did not detect a murmur. NEURO: Pupils are equal. Visual campbell are full. Extraocular movements intact without nystagmus. Face is symmetric with normal sensation. Tongue was midline. There is slight right drift. She had normal strength in upper and lower extremities bilaterally but she is clumsy on fast finger movements on the right hand. Toes are downgoing bilaterally. Pinprick is intact throughout including the right hand. She is not ataxic on [id number] but a little bit slow in the right than the left. Speech is a little slurred, slightly dysarthric but normal repetition, naming, calculations, follows commands well. LABORATORY DATA CBC is normal. Basic metabolic profile is normal. LFTs normal. LDL cholesterol was 137. TSH normal in 2015. B12 was normal at that time. IMAGING STUDIES CT of the brain shows some smattering of white matter changes on the left and an old right head of the caudate region infarct. MRI of the brain done on the shows the old right infarct, also smattering of white matter changes on the right side, subcortical and left basal ganglionic infarct coming up into the howe radiata touching the ventricle. No hemorrhage noted. The [place] of [place] does look intact __ bilateral ACAs come off of the left system. Vertebrobasilar system looks fine. The left MCA system also looks good. I do not see any definite stenosis. MRA of the neck, the left carotid system looks intact. No stenosis there. CARDIOLOGY STUDIES Her echocardiogram showed a normal ejection fraction. Normal mitral valve. Normal aortic valve. Normal left atrial size. IMPRESSION Left middle cerebral artery eyewear consultant. I am recommending keep her head of bed flat. Will start her on Plavix. Give her fluids. Keep her blood pressure up. Continue on her statin. Recheck the MR. I will be following her with you in the hospital. I think there is probably a slight natural progression of the infarct. Also check a Holter on her. MD SUNSHINE Marcos/ZEESHAN /8:06 PM /8:20 PM
[2017-02-25] MEDS: CLOPIDOGREL 75 MG TAB PO SCH (21:26)
[2017-02-25] MEDS: ASPIRIN EC 325 MG TABEC PO SCH (21:26)
[2017-02-25] MEDS: ATORVASTATIN 10 MG TAB PO SCH (21:26)
[2017-02-25] MEDS: SODIUM CHLORIDE 0.9% FLUSH 5 ML FLUSH IV FLUSH SCH (21:37)
[2017-02-26] VITALS (7 sets, daily range): BP systolic 97–163; BP diastolic 50–83; PULSE 61–75; RESP 20; TEMP 97.4–98.5; O2SAT 94–99
[2017-02-26] MEDS: IBUPROFEN 600 MG TAB PO PRN ×2 (05:01→15:11)
[2017-02-26] MEDS: SODIUM CHLOR 0.9% 1000 ML INJ 1,000 ML IV SCH ×4 (06:43→22:52)
[2017-02-26] MEDS: INSULIN ASPART SUPPLEMENTAL SCALE SQ SCH ×4 (08:00→21:00)
--- NOTE | 2017-02-26 08:48 | HHI.PR ---
Subjective Remarks sr no new worsening Objective Vital Signs Date Time Temp Pulse Resp B/P (MAP) Pulse Ox O2 Delivery O2 Flow Rate FiO2 02/26/17 08:33 98.5 61 20 126/64 (84) 98 02/26/17 04:00 98.5 72 20 163/78 (106) 98 02/26/17 00:00 97.4 70 20 134/63 (86) 98 02/25/17 20:00 97.4 76 20 145/69 (94) 99 02/25/17 19:00 76 02/25/17 16:00 98.6 72 18 169/77 (107) 95 02/25/17 15:24 02/25/17 14:56 69 17 153/73 (99) 99 Room Air 02/25/17 13:08 73 24 131/77 (95) 100 Room Air 02/25/17 11:09 75 17 143/68 (93) 98 Room Air 02/25/17 11:05 97.8 76 16 143/68 (93) 98 I/O 02/25/17 02/25/17 02/25/17 02/26/17 02/26/17 02/26/17 07:00 15:00 23:00 07:00 15:00 23:00 Intake Total 240 ml 320 ml Balance 240 ml 320 ml Intake Oral 240 ml 320 ml # Voids 1 2 Result Diagram: 02/25/17 1157 02/25/17 1157 Other Results lab and mri pend Objective Remarks minimal r droop moves well ffm a little slow r 5/5 rue and rle spcch little slurred Assessment and Plan Assessment and Plan imp check mri labs holter if mri stable and doing well kareem queen in am Zander Hazel MD Feb 26, 2017 08:48
[2017-02-26] MEDS ORDERED: ASPIRIN 81 MG CHEW TAB PO SCH (09:00)
[2017-02-26] MEDS: CLOPIDOGREL 75 MG TAB PO SCH (09:01)
[2017-02-26] MEDS: ASPIRIN EC 325 MG TABEC PO SCH (09:01)
[2017-02-26] MEDS: PANTOPRAZOLE SOD 20 MG DELAYED RELEASE TAB PO SCH (09:01)
[2017-02-26] MEDS: SODIUM CHLORIDE 0.9% FLUSH 5 ML FLUSH IV FLUSH SCH ×2 (09:02→22:09)
[2017-02-26 10:38] LABS: HEMOGLOBIN A1b 1.8 %; HEMOGLOBIN Ao 85.2 %; HEMOGLOBIN LA1C 2.1 %; HEMOGLOBIN P3 3.7 %
[2017-02-26 11:47] LABS: HDL CHOLESTEROL 45.3 MG/DL (40.0-60.0)
--- NOTE | 2017-02-26 12:13 | RADRPT ---
EXAM DATE/TIME: 02/26/2017 11:11 [facility] COMPARISON: MRI BRAIN W/O CONTRAST, February 23, 2017, 14:25. INDICATIONS : CVA. MEDICAL HISTORY : Hypertension. Hypercholesterolemia. SURGICAL HISTORY : Hysterectomy. Tonsillectomy. ENCOUNTER: Initial ACUITY: 1 day PAIN SCORE: 0/10 LOCATION: cranial TECHNIQUE: Multiplanar, multisequence MRI of the brain was performed without contrast. FINDINGS: CEREBRUM: There is a persistent area of signal abnormality on the diffusion weighted images at the basal gangli a consistent with a subacute area of infarction. There is an old lacunar infarct at the anterior limb of the internal capsule on the right. There are scattered areas of increased signal seen in the cere bral white matter on the flair images. The ventricles are normal for age. No evidence of midline jeffry ft, mass lesion, or hemorrhage. No extraaxial fluid collections are seen. The pituitary gland and s uprasellar cistern are normal in configuration. WHITE MATTER: There are scattered focal areas of signal abnormality within the cerebral white matter. POSTERIOR FOSSA: The cerebellum and brainstem are intact. The 4th ventricle is midline. The cerebellopontine angle is unremarkable. The cerebellar tonsils are normal in position. DIFFUSION IMAGING: Again noted is the 1.5 cm area of signal abnormality at left basal ganglia. EXTRACRANIAL: The visualized portions of the orbits and paranasal sinuses are unremarkable. CONCLUSION: 1. Persistent subacute area of infarction at the left basal ganglia. 2. Old infarct at the right anterior limb of the internal capsule. 3. Scattered areas of signal abnormality within the cerebral white matter likely related to demyelina tion. These could be from small vessel ischemic change although they are nonspecific. Tremaine Rosado MD on February 26, 2017 at 12:06 Board Certified Radiologist. This report was verified electronically.
--- NOTE | 2017-02-26 13:01 | EKG ---
Date Performed: 02/25/2017 Time Performed: 11:12:49 PTAGE: 66 years EKG: Sinus rhythm NORMAL ECG NO PREVIOUS TRACING DOCTOR: Dylan Villagomez Interpretating Date/Time 02/26/2017 13:00:58
[2017-02-26] MEDS: ENOXAPARIN SODIUM 40 MG/0.4 ML SYRINGE SQ SCH (15:11)
--- NOTE | 2017-02-26 15:59 | HHI.PR ---
Subjective Remarks Patient seen this morning around 10:30 AM. She reports continued right hand, right leg weakness, without any worsening. Denies any chest pain or shortness of breath. Denies nausea or vomiting. Objective Vital Signs Date Time Temp Pulse Resp B/P (MAP) Pulse Ox O2 Delivery O2 Flow Rate FiO2 02/26/17 08:33 98.5 61 20 126/64 (84) 98 02/26/17 07:40 63 02/26/17 04:00 98.5 72 20 163/78 (106) 98 02/26/17 00:00 97.4 70 20 134/63 (86) 98 02/25/17 20:00 97.4 76 20 145/69 (94) 99 02/25/17 19:00 76 02/25/17 16:00 98.6 72 18 169/77 (107) 95 I/O 02/25/17 02/25/17 02/25/17 02/26/17 02/26/17 02/26/17 07:00 15:00 23:00 07:00 15:00 23:00 Intake Total 240 ml 320 ml Balance 240 ml 320 ml Intake Oral 240 ml 320 ml # Voids 1 2 2 Result Diagram: 02/25/17 1157 02/25/17 1157 Objective Remarks GENERAL: She lying in bed. Appears comfortable. Alert and oriented 3. Still with slightly slurred speech. SKIN: Warm and dry. HEAD: Normocephalic. EYES: No scleral icterus. No injection or drainage. NECK: Supple, trachea midline. No JVD or lymphadenopathy. CARDIOVASCULAR: Regular rate and rhythm without murmurs, gallops, or rubs. RESPIRATORY: Breath sounds equal bilaterally. No accessory muscle use. GASTROINTESTINAL: Abdomen soft, non-tender, nondistended. MUSCULOSKELETAL: No cyanosis, or edema. Neurologic. Continued weakness on right side. 4-5 strength right upper extremity, right lower extremity. 5/ 5 strength on the left. BACK: Nontender without obvious deformity. No CVA tenderness. A/P Assessment and Plan === 02/26/17 //Subacute CVA involving left caudate. Holter pending. MRI ordered by neurology. Appreciate assistance. Can likely discharge tomorrow morning if cleared by neurology. Constipation. Laxatives ordered. 66-year-old female with past medical history of HLD and chronic neck pain who was discharged yesterday after acute CVA presented for recurrent neurologic symptoms Acute on subacute CVA involving the left caudate, left basal ganglia, left centrum semiovale: Reviewed: Records from previous hospitalization. Head CT today shows mild versus an acute infarction involving the left caudate, left basal ganglia, left centrum semiovale; old lacunar infarct on the right. -Swallowcleared for clears, stroke scale, glucose checks -Consult neurology -Continue aspirin and statin -PT/OT/ST -IVF Chronic neck pain: -Continue ibuprofen and PPI DVT prophylaxis: SCDs, Lovenox Discharge Planning Celine discharge home tomorrow when cleared by neurology. Sean Garcia MD Feb 26, 2017 15:59
[2017-02-26] MEDS ORDERED: DOCUSATE SODIUM 50 MG/SENNA 8.6 MG TAB PO ONE (16:00)
[2017-02-26] MEDS: ATORVASTATIN 10 MG TAB PO SCH (22:08)
[2017-02-27] MEDS: IBUPROFEN 600 MG TAB PO PRN ×2 (00:16→12:21)
[2017-02-27 01:00] VITALS: BP 120/62; PULSE 63; RESP 20; TEMP 97.9; O2SAT 96
[2017-02-27 04:54] VITALS: BP 122/58; PULSE 62; RESP 20; TEMP 97.9; O2SAT 97
--- NOTE | 2017-02-27 07:41 | HHI.PR ---
Subjective Remarks sr no new worsening Objective Vital Signs Date Time Temp Pulse Resp B/P (MAP) Pulse Ox O2 Delivery O2 Flow Rate FiO2 02/27/17 04:54 97.9 62 20 122/58 (79) 97 02/27/17 01:00 97.9 63 20 120/62 (81) 96 02/26/17 21:17 98.4 65 20 122/58 (79) 94 02/26/17 16:42 98.2 75 20 97/50 (66) 98 02/26/17 12:00 97.8 66 20 161/83 (109) 99 02/26/17 08:33 98.5 61 20 126/64 (84) 98 02/26/17 07:40 63 I/O 02/26/17 02/26/17 02/26/17 02/27/17 02/27/17 02/27/17 07:00 15:00 23:00 07:00 15:00 23:00 Intake Total 320 ml Balance 320 ml Intake Oral 320 ml # Voids 2 6 1 # Bowel Movements 1 Result Diagram: 02/25/17 1157 02/25/17 1157 Objective Remarks minimal r droop moves well ffm a little slow r 5/5 rue and rle speech little slurred no change gait steady Assessment and Plan Assessment and Plan imp check mri mjinimal inc size cva c/t last time labs chol inc on statin holter pend ok to dc on plavix statin fu dr foreman 6 weeks Zander Hazel MD Feb 27, 2017 07:41
[2017-02-27 08:00] VITALS: BP 110/67; PULSE 89; RESP 16; TEMP 98.1; O2SAT 94
[2017-02-27] MEDS: INSULIN ASPART SUPPLEMENTAL SCALE SQ SCH ×3 (08:00→17:00)
[2017-02-27] MEDS: SODIUM CHLORIDE 0.9% FLUSH 5 ML FLUSH IV FLUSH SCH (09:00)
[2017-02-27] MEDS: CLOPIDOGREL 75 MG TAB PO SCH (09:59)
[2017-02-27] MEDS: ASPIRIN EC 325 MG TABEC PO SCH (09:59)
[2017-02-27] MEDS: PANTOPRAZOLE SOD 20 MG DELAYED RELEASE TAB PO SCH (09:59)
[2017-02-27] MEDS ORDERED: PLAV75TA29 PO (10:35)
[2017-02-27] MEDS ORDERED: LIPI10TA PO (10:35)
[2017-02-27 12:00] VITALS: BP 117/64; PULSE 61; PULSE 81; RESP 16; TEMP 97.6; O2SAT 97
[2017-02-27] MEDS: SODIUM CHLOR 0.9% 1000 ML INJ 1,000 ML IV SCH (12:12)
--- NOTE | 2017-02-27 13:37 | HHI.FF ---
Face to Face Verification Diagnosis: (1) CVA (cerebral vascular accident) (2) Hyperlipidemia Physical Therapy Order: Evaluate and Treat Occupational Therapy Order: Evaluate and Treat Speech Therapy Order: To Improve: Speech and communication skills Home Health Nursing Instructions: Home health nurse for medication management Process Equipment Operator Order: To Provide: Community services I have seen patient Alicia Mehta on 02/27/17. My clinical findings support the need for the requested home health care services because: Limited ability to care for self I certify that my clinical findings support that this patient is homebound because: Unsafe to leave home unassisted Sean Garcia MD Feb 27, 2017 13:37
--- NOTE | 2017-02-27 14:09 | HHI.PR ---
Subjective Remarks Patient seen this morning around 10 AM. Says she is feeling all right. Right- sided weakness unchanged. Speech unchanged. Denies any headache. Feels like she can go home, however would like to wait for her sister to come back from [place] this afternoon prior to leaving. Constipation resolved Objective Vital Signs Date Time Temp Pulse Resp B/P (MAP) Pulse Ox O2 Delivery O2 Flow Rate FiO2 02/27/17 12:00 97.6 81 16 117/64 (81) 97 02/27/17 08:00 98.1 89 16 110/67 (81) 94 02/27/17 04:54 97.9 62 20 122/58 (79) 97 02/27/17 01:00 97.9 63 20 120/62 (81) 96 02/26/17 21:17 98.4 65 20 122/58 (79) 94 02/26/17 16:42 98.2 75 20 97/50 (66) 98 I/O 02/26/17 02/26/17 02/26/17 02/27/17 02/27/17 02/27/17 07:00 15:00 23:00 07:00 15:00 23:00 Intake Total 320 ml Balance 320 ml Intake Oral 320 ml # Voids 2 6 1 # Bowel Movements 1 Result Diagram: 02/25/17 1157 02/25/17 1157 Objective Remarks GENERAL:pt lying in bed. Appears comfortable. Alert and oriented 3. Still with slightly slurred speech. SKIN: Warm and dry. HEAD: Normocephalic. EYES: No scleral icterus. No injection or drainage. NECK: Supple, trachea midline. No JVD or lymphadenopathy. CARDIOVASCULAR: Regular rate and rhythm without murmurs, gallops, or rubs. RESPIRATORY: Breath sounds equal bilaterally. No accessory muscle use. GASTROINTESTINAL: Abdomen soft, non-tender, nondistended. MUSCULOSKELETAL: No cyanosis, or edema. Neurologic. Continued weakness on right side. 4-5 strength right upper extremity, right lower extremity. 5/ 5 strength on the left. Unchanged BACK: Nontender without obvious deformity. No CVA tenderness. A/P Assessment and Plan === 02/26/17 //Subacute CVA involving left caudate. Holter pending. MRI ordered with evolving subacute stroke.. Appreciate assistance. Can likely discharge tomorrow morning if cleared by neurology. -Can discharge home on Plavix, low-dose aspirin. Home health PT, OT, ST //Constipation. Resolved after laxatives. 66-year-old female with past medical history of HLD and chronic neck pain who was discharged yesterday after acute CVA presented for recurrent neurologic symptoms //Acute on subacute CVA involving the left caudate, left basal ganglia, left centrum semiovale: Reviewed: Records from previous hospitalization. Head CT today shows mild versus an acute infarction involving the left caudate, left basal ganglia, left centrum semiovale; old lacunar infarct on the right. -Swallowcleared for clears, stroke scale, glucose checks -Consult neurology -Continue aspirin and statin -PT/OT/ST -IVF Chronic neck pain: -Discontinue ibuprofen due to risk of ulcer. Recommend Tylenol arthritis over- the-counter. DVT prophylaxis: SCDs, Lovenox Discharge Planning Discharge home with home health PT, OT, ST. Jj with case management. Sean Garcia MD Feb 27, 2017 14:08
--- NOTE | 2017-02-27 14:10 | HHI.DS ---
Discharge Summary Admission Date Feb 25, 2017 at 13:36 Discharge Date: Feb 27, 2017 Admitting Diagnosis CVA (1) CVA (cerebral vascular accident) ICD Code: I63.9 - Cerebral infarction, unspecified Procedures No invasive procedures Brief History - From Admission Written by Juan Oro, acting as scribe for Dr. Garcia on 02/25/17 at 15:23. 66-year-old female with past medical history of HLD and chronic neck pain who was discharged yesterday after acute CVA presented for recurrent neurologic symptoms. The patient was discharged from hospital yesterday afternoon. She was fine and asymptomatic prior to going to bed. She states when she woke up this morning she had slurred speech which has persisted today. Earlier today she had a funny feeling in her right hand and had a hard time writing her name, denies any right upper extremity weakness. The right leg involvement. She denies any vision blurriness, lightheadedness, dizziness, swallowing difficulties. She did notice some sinus congestion starting yesterday. Last BM 2 days ago. She denies any fever, chills, chest pain. CBC/BMP: 02/25/17 1157 02/25/17 1157 Significant Findings Laboratory Tests Test 02/25/17 11:57 02/26/17 10:55 Monocytes (%) (Auto) 9.8 % (0.0-8.0) Estimat Glomerular Filtration Rate 78 ML/MIN (>89) Folate GREATER THAN 20.0 NG/ML Triglycerides Level 171 MG/DL (42-150) Cholesterol Level 220 MG/DL (120-200) LDL Cholesterol 141 MG/DL (0-99) Imaging Last Impressions Brain MRI 02/26/17 0846 Signed Impressions: Service Date/Time: Sunday, February 26, 2017 11:11 - CONCLUSION: 1. Persistent subacute area of infarction at the left basal ganglia. 2. Old infarct at the right anterior limb of the internal capsule. 3. Scattered areas of signal abnormality within the cerebral white matter likely related to demyelination. These could be from small vessel ischemic change although they are nonspecific. Tremaine Rosado MD Head CT 02/25/17 0000 Signed Impressions: Service Date/Time: Saturday, February 25, 2017 11:20 - CONCLUSION: 1. Mild areas of subacute infarction involving the left caudate, left basal ganglia, and left centrum semiovale. 2. Old lacunar infarct on the right. Tremaine Rosado MD Hospital Course Imaging on admission as above. Patient was admitted for close monitoring. Neurology was consult. They show was started on Plavix. Was seen by physical therapy, occupational therapy, speech therapy, and will go home with home health for PT, OT, ST. Discussed with patient that it'll be best to discontinue home Advil, try Tylenol arthritis instead. She'll follow-up with neurology as outpatient. For probably summary from most recent progress note, please see below. == 02/26/17 //Subacute CVA involving left caudate. Holter pending. MRI ordered with evolving subacute stroke.. Appreciate assistance. Can likely discharge tomorrow morning if cleared by neurology. -Can discharge home on Plavix, low-dose aspirin. Home health PT, OT, ST //Constipation. Resolved after laxatives. 66-year-old female with past medical history of HLD and chronic neck pain who was discharged yesterday after acute CVA presented for recurrent neurologic symptoms //Acute on subacute CVA involving the left caudate, left basal ganglia, left centrum semiovale: Reviewed: Records from previous hospitalization. Head CT today shows mild versus an acute infarction involving the left caudate, left basal ganglia, left centrum semiovale; old lacunar infarct on the right. -Swallowcleared for clears, stroke scale, glucose checks -Consult neurology -Continue aspirin and statin -PT/OT/ST -IVF Chronic neck pain: -Discontinue ibuprofen due to risk of ulcer. Recommend Tylenol arthritis over- the-counter. DVT prophylaxis: SCDs, Lovenox Discharge Planning Discharge home with home health PT, OT, ST. Cussed with case management. Pt Condition on Discharge: Good Discharge Disposition: Disch w/ Home Health Serv Discharge Time: > 30 minutes Discharge Instructions DIET: Follow Instructions for: Heart Healthy Diet Activities you can perform: Regular-No Restrictions Follow up Referrals: Neurology - 6 Weeks with Nacho Harley MD PCP Follow-up - 1 Week with Feliz Pineda MD New Medications: Clopidogrel (Plavix) 75 Mg Tab 75 MG PO DAILY for prevent stroke for 30 Days, #30 TAB Changed Medications: Atorvastatin (Lipitor) 10 Mg Tab 20 MG PO HS for Cholesterol Management, #30 TAB (Changed from: 10 MG) Continued Medications: Aspirin (Aspirin Low Strength) 81 Mg Chew 81 MG PO DAILY for Blood Clot Prevention, #30 EA Omeprazole (Omeprazole) 20 Mg Tab 20 MG PO DAILY, #30 TAB 0 Refills Discontinued Medications: Ibuprofen (Ibuprofen) 600 Mg Tab 600 MG PO Q8HR PRN for PAIN, TAB 0 Refills Sean Garcia MD Feb 27, 2017 14:10
[2017-02-27 14:29] LABS: ANA SCREEN NEG (NEG)
[2017-02-27] MEDS: ENOXAPARIN SODIUM 40 MG/0.4 ML SYRINGE SQ SCH (15:50)
[2017-02-27 16:00] VITALS: BP 133/63; PULSE 62; RESP 16; TEMP 97.9; O2SAT 100
[2017-02-27] MEDS: ATORVASTATIN 10 MG TAB PO SCH (20:35)
--- NOTE | 2017-03-01 21:12 | HM ---
Date Performed: 02/27/2017 Time Performed: 14:09:00 HOOKUP DATE: 02/27/17 02:09:00 PM Mon ANALYSIS START TIME: 02/27/2017 2:14:00 PM ANALYSIS END TIME: 02/28/2017 2:02:23 PM PATIENT AGE: 66 PATIENT HEIGHT PATIENT WEIGHT DRUG LIST PATIENT DIAGNOSIS TEST NARRATIVE: The patient's average heart rate was 71 BPM. No episodes of tachycardia wer e noted. No episodes of bradycardia were noted. No pauses exceeding 2.0 seconds were noted. 3 ventricular ectopics, which represented < 1% of the total beat count, were noted. The highest vent ricular ectopic frequency occurred from 12:00 AM to 01:00 AM Tue. During this time 1 VE(s) occurred. Ventricular ectopics were observed as 3 isolated beat(s) only. No couplets or runs were noted. 4 supraventricular ectopics, which represented < 1% of the total beat count, were noted. The highes t supraventricular ectopic frequency occurred from 03:00 PM to 04:00 PM Mon. During this time 1 SVE( s) occurred. No episodes of ST depression (defined as -1.0 mm or more) were noted in channel 1. No episodes of ST depression (defined as -1.0 mm or more) were noted in channel 2. No episodes of ST depression (defined as -1.0 mm or more) were noted in channel 3. no diary returned TEST INTERPRETATION: 1. predominant underlying rhythm is sinus with an average heart rate of 71 beats per minute 2. rare premature atrial complexes and rare premature ventricular complexes were not ed. 3. no pauses of greater than 3 seconds noted. 4. no significant tachy or Alexis arrhythmias noted during the recorded time interval 5. no cardiac symptoms noted during the recorded time interval Signed by : Mihir Patel
== END 2017-02-27 23:04 | disposition home or self-care (01) | DRG 66 ==
LOC: NEPE 10:55 → NEDA 13:29 → OBSVTOIN 13:36 → N05A 15:27
PROVIDERS: ADMIT Internal Medicine; ATTEND Internal Medicine
DX: I63.9 Cerebral infarction, unspecified (principal); F32.9 Major depressive disorder, single episode, unspecified; R29.702 NIHSS score 2; R29.810 Facial weakness; R47.1 Dysarthria and anarthria; E78.5 Hyperlipidemia, unspecified; Z66 Do not resuscitate; K59.00 Constipation, unspecified; G89.29 Other chronic pain; Z87.891 Personal history of nicotine dependence; Z79.82 Long term (current) use of aspirin
CPT/HCPCS: 70450; 70551; 80048; 80061; 82607; 82746; 82948; 83036; 83921; 84425; 84439; 84443; 85025; 85610; 85652; 85730; 86038; 86592; 93005; 93225; 93226; J1650

== ENCOUNTER → 2017-06-30 | Outpatient (CLI) | payer OTHER ==
[2017-06-30 10:58] LABS: ALT (GPT) 32 U/L (10-53); ANION GAP 8 MEQ/L (5-15); AST (GOT) 31 U/L (15-37); BLOOD UREA NITROGEN 19 MG/DL (7-18); CALCIUM 9.5 MG/DL (8.5-10.1); CHLORIDE 104 MEQ/L (98-107); CHOLESTEROL 194 MG/DL (120-200); CREATININE 0.83 MG/DL (0.50-1.00); GLOMERULAR FILTRATION RATE 69 ML/MIN (>89); GLUCOSE,FASTING 102 MG/DL (74-99); POTASSIUM 3.8 MEQ/L (3.5-5.1); SODIUM (NA) 140 MEQ/L (136-145)
[2017-06-30 11:01] LABS: ALKALINE PHOSPHATASE 76 U/L (45-117); CHOLESTEROL/ HDL RATIO 3.46 RATIO; LDL CHOLESTEROL 106 MG/DL (0-99); TOTAL BILIRUBIN ADULT 0.4 MG/DL (0.2-1.0); TOTAL PROTEIN 7.4 GM/DL (6.4-8.2); TRIGLYCERIDES 160 MG/DL (42-150)
== END ==
LOC: CLAB 09:47
DX: E78.2 Mixed hyperlipidemia (principal)
CPT/HCPCS: 36415; 80053; 80061